=== PATIENT | male | born 1985 | race Caucasian/White ===

== ENCOUNTER 2019-05-12 23:05 | Emergency (ER) | payer OTHER ==
[~2019-05-12] VITALS: Ht 182.9 cm; Wt 77.1 kg
--- NOTE | 2019-05-12 23:05 | NUR ---
"C/O SI WITH PLAN TO DROWN IN THE [place]CE[place]. PT DENIES HI" PT TO BED 13, PT ON MONITOR, VSS, NAD NOTED, -SOB, PENDING MD MANE
--- NOTE | 2019-05-12 23:55 | NUR ---
URINE COLLECTED AND SENT TO LAB
[2019-05-12 23:58] LABS: BASOPHILS # (AUTO) 0.1 /CMM (0.0-0.2); BASOPHILS % (AUTO) 0.9 % (0.0-2.0); EOSINOPHILS % (AUTO) 11.6 % (0.0-6.0); HEMATOCRIT 42 % (39-51); HEMOGLOBIN 14.1 g/dL (13.5-17.5); LYMPHOCYTES # (AUTO) 2.3 /CMM (0.8-4.8); LYMPHOCYTES % (AUTO) 37.1 % (20.0-44.0); MEAN CORPUSCULAR HGB CONC 33 g/dl (31.0-36.0); MEAN CORPUSCULAR VOLUME 91 fL (80-96); MONOCYTES # (AUTO) 0.7 /CMM (0.1-1.30); MONOCYTES % (AUTO) 10.7 % (2.0-12.0); NEUTROPHILS # (AUTO) 2.5 /CMM (1.8-8.9); NEUTROPHILS % (AUTO) 39.7 % (43.0-81.0); PLATELET COUNT (AUTO) 294 /CMM (150-450); RED BLOOD CELL COUNT(AUTO) 4.64 MIL/uL (4.5-6.0); WHITE BLOOD COUNT (AUTO) 6.2 K/uL (4.3-11.0)
[2019-05-13 00:18] LABS: CALCIUM, SERUM 8.9 mg/dL (8.5-10.1); CARBON DIOXIDE 33 mmol/L (21-32); CHLORIDE 102 mmol/L (98-107); CREATININE 0.6 mg/dL (0.6-1.3); GLUCOSE 90 mg/dL (74-106); POTASSIUM 4.1 mmol/L (3.5-5.1); SODIUM SERUM 140 mmol/L (136-145); UREA NITROGEN, BLOOD 7 mg/dL (7-18)
[2019-05-13 00:32] LABS: ALANINE AMINOTRANSFERASE 43 U/L (12-78); ALCOHOL, BLOOD < 3 mg/dL (0-0); ALKALINE PHOSPHATASE 129 U/L (46-116); ASPARTATE AMINOTRANSFERASE 23 U/L (15-37); BILIRUBIN,TOTAL 0.2 mg/dL (0.2-1.0); TOTAL PROTEIN, SERUM 7.5 g/dL (6.4-8.2)
[2019-05-13 00:34] LABS: ACETAMINOPHEN < 2 ug/ml (10-30); SALICYLATE 1.3 mg/dL (2.8-20.0)
--- NOTE | 2019-05-13 00:51 | NUR ---
CALLED [facility], NO BEDS AVAILABLE AT THIS TIME
[2019-05-13 00:58] LABS: APPEARANCE,URINE Clear (CLEAR); BILIRUBIN,URINE Negative (NEGATIVE); BLOOD, URINE Negative Ery/uL (NEGATIVE); COLOR,URINE Light yellow (YELLOW); KETONES,URINE Negative (NEGATIVE); LEUKOCYTE ESTERASE ,URINE Negative (NEGATIVE); NITRITE, URINE Negative (NEGATIVE); PH,URINE 6.5 (5.0-8.0); PROTEIN,URINE Negative (NEGATIVE); UGLUCOSE Negative (NEGATIVE); UROBILINOGEN,URINE 0.2 EU/dL (0.2)
--- NOTE | 2019-05-13 03:44 | NUR ---
PT ASLEEP, NO ACUTE DISTRESS NOTED, RESP EVEN AND UNLABORED. CALL LIGHT WITHIN REACH. WILL CONTINUE TO MONITOR PT.
--- NOTE | 2019-05-13 04:30 | NUR ---
Patient is resting comfortably in bed with eyes closed. Easily aroused.
--- NOTE | 2019-05-13 05:14 | NUR ---
Patient is resting comfortably in bed. Easily aroused.
--- NOTE | 2019-05-13 06:06 | NUR ---
PT TO BE TRANSFERRED TO [facility]. NUMBER FOR REPORT: [phone] (AFTER [phone]) ACCEPTING MD: DR. REYES REQUESTING TO SEND PT AFTER 729
--- NOTE | 2019-05-13 06:15 | NUR ---
CALLED [facility] FOR TRANSPORTATION. ETA [id number], TRIP NUMBER [id number]
[2019-05-13 06:52] VITALS: BP 124/77
--- NOTE | 2019-05-13 09:10 | NUR ---
REPORT GIVEN TO PILI VERDUZCO AT [facility]
[2019-05-13] MEDS ORDERED: IBUPROFEN 600 MG TABLET PO ONE ×2 (09:46→10:00)
--- NOTE | 2019-05-13 09:52 | NUR ---
pt left in stable condtion, transported to [facility] via private ambulance, vss, -sob, report given
== END 2019-05-13 10:01 ==
LOC: ER 23:09
DX: R45.851 Suicidal ideations (principal); F43.10 Post-traumatic stress disorder, unspecified; F20.9 Schizophrenia, unspecified; F41.9 Anxiety disorder, unspecified; F32.9 Major depressive disorder, single episode, unspecified
CPT/HCPCS: 36415; 80048; 80076; 80305; 80307; 80329; 81001; 85025; 99285; G0480; 81000-TC